=== PATIENT | female | born 1990 | race Caucasian/White ===

== ENCOUNTER 2019-10-07 10:38 | Outpatient (RCR) | payer OTHER, SELFPAY ==
[2019-10-07 12:41] LABS: Hematocrit 28.7 % (37.0-47.0)
[2019-10-07 12:52] LABS: Glucose 1 Hour PP 50gm Dose 104 mg/dL
[2019-10-07 13:33] LABS: HIV 1/2 Ab P24 Ag Result Negative (Negative)
[2019-10-10] MEDS: RHO(D) IMMUNE GLOBULIN 300 MCG SYRINGE IM (10:20)
[2019-10-10 10:54] LABS: Rapid Plasma Reagin Non-Reactive (NonReactive)
== END 2020-01-05 23:59 | disposition home or self-care (01) ==
LOC: ANHLAB 10:38
PROVIDERS: Visit Provider Obstetrics & Gynecology
DX: Z29.13 Encounter for prophylactic Rho(D) immune globulin (principal); Z11.4 Encounter for screening for human immunodeficiency virus [HIV]; O36.0130 Maternal care for anti-D [Rh] antibodies, third trimester, not applicable or unspecified; Z3A.00 Weeks of gestation of pregnancy not specified
CPT/HCPCS: 36415; 82947; 85014; 85018; 85461; 86592; 86703; 90384; 96372; G0432; J2790

== ENCOUNTER 2019-12-13 14:40 | Outpatient (CLI) | payer OTHER, SELFPAY ==
[2019-12-13 15:24] LABS: Hematocrit 36.2 % (37.0-47.0); Hemoglobin 11.8 g/dL (12.0-15.0); Mean Corpuscular HGB Conc 32.6 g/dl (32-36); Mean Corpuscular Hemoglobin 28.2 pg (26-34); Mean Corpuscular Volume 86.6 fl (80-100); Mean Platelet Volume 9.9 fl (7.4-10.4); Platelet Count Result 142 k/mm3 (150-375); Red Blood Count 4.18 M/mm3 (4.2-5.4); Red Cell Distribution Width 21.2 % (11.5-14.5); White Blood Count 8.8 K/mm3 (4.5-10.0)
[2019-12-14 07:41] LABS: Rapid Plasma Reagin Non-Reactive (NonReactive)
== END 2019-12-13 14:41 | disposition home or self-care (01) ==
PROVIDERS: Visit Provider Obstetrics & Gynecology
DX: Z01.812 Encounter for preprocedural laboratory examination (principal)
CPT/HCPCS: 36415; 85027; 86592; 86850; 86900; 86901

== ENCOUNTER 2019-12-14 05:10 | Inpatient (IN) | payer OTHER, SELFPAY ==
--- NOTE | 2019-11-15 16:04 | PC.NURSE ---
VERIFIED WITH OR SCHEDULE AND PATIENT--C/S WITH TUBAL LIGATION ON 12/14/19 AT 0730 PATIENT GIVEN REQUISITION FOR PRE-OP LAB DRAW ON 12/13/19
[2019-12-14] VITALS (61 sets, daily range): BP systolic 94–114; BP diastolic 49–71; PULSE 39–117; RESP 16–18; TEMP 36.3–36.6; O2SAT 94–100; BMI 31.2
[2019-12-14] MEDS: LACTATED RINGERS 1,000 ML 125 ML IV CONT ×2 (06:25→06:45)
--- NOTE | 2019-12-14 07:10 | WPDANESEPPF ---
Anes - Initial Pre Proc Eval Procedure: Operation Date: 12/14/19 07:30 Proposed Procedures p Repeat Section With Bilateral Tubal Ligation - Rosana Farrell MD Date/Time: 12/14/19 07:10 Surgeon: Rosana Farrell MD Pre Op Diagnosis: Section Patient Data Age: 29 Gender: F Height: 5 ft 1 in Weight: 75 kg Last Vital Signs Pulse 75 12/14/19 06:31 BP 103/58 L 12/14/19 06:31 Pulse Ox 100 12/14/19 06:36 Allergies Allergy/AdvReac Type Severity Reaction Status Date / Time No Known Allergies Allergy Verified 11/15/19 15:47 Home Medications Medication Instructions Recorded Confirmed Type PNV cmb#95-ferrous fumarate-FA 1 tablet PO DAILY 11/15/19 11/15/19 History [] ferrous sulfate 325 mg PO DAILY 11/15/19 11/15/19 History Patient hx anesthesia problems: none Family hx anesthesia problems: none PMFSH Family History Family History Mother Hypertension Asthma Father Diabetes mellitus Grandparent Cancer Acute myocardial infarction Liver failure Asthma Social History Social History Smoking status: Never smoker Second hand tobacco smoke exposure: No Substance use: never Spiritual care concerns: No Anes - Eval Final PreProcedure Day of Procedure 12/14/19 07:10 Patient weight: obese Heart: regular rate and rhythm Lungs: clear to auscultation Airway: Mallampati scale class II Neurological: alert and oriented Last oral intake: >/= 8 hours ASA classification: II Emergent: no Anesthetic plan: proceed Anesthesia type and monitoring: regional spinal and standard monitoring Informed Consent: The patient's anesthetic plan and its attendant risks and benefits were discussed with the patient/family/POA. Questions were solicited and answers provided to the satisfaction of the patient/family/POA.
[2019-12-14] MEDS: ceFAZolin 2 GM/D5W 50 ML 2 GM/50 ML BAG IVPB (07:22)
--- NOTE | 2019-12-14 07:29 | PM.IMHP ---
H&P: HPI History of Present Illness Chief complaint: Section Narrative: Jil Camejo is a 29 year old female 4 para 2 102 at 39 weeks gestation. She has a previous . She presents for repeat delivery. She has unwanted fertility and she also presents for sterilization. she has no complaints. She reports good movement. She denies any loss of fluid, vaginal bleeding, contractions. She denies any nausea, vomiting, fever, chills. She denies any chest pain shortness of breath. Review of Systems Constitutional: Constitutional: Reports no additional constitutional complaints, Denies fatigue, Denies headache(s), Denies lethargy and Denies weakness Eyes: Eyes: Reports no additional eye complaints, Denies blurry vision and Denies photophobia ENT: Reports as per HPI, Denies headache(s) and Denies neck pain Cardiovascular: Cardiovascular: Denies chest pain, Denies diaphoresis, Denies leg edema, Denies palpitations and Denies dyspnea Respiratory: Respiratory: Denies hemoptysis, Denies dyspnea and Denies wheezing Gastrointestinal: Gastrointestinal: Denies abdominal pain, Denies melena, Denies bloating, Denies hematochezia, Denies nausea and Denies vomiting Genitourinary: Genitourinary: Reports no additional female genitourinary complaints Musculoskeletal: Musculoskeletal: Denies joint swelling, Denies neck pain, Denies numbness and Denies stiffness Neurologic: Denies Abnormal speech present, Denies confusion, Denies headache(s), Denies numbness and Denies weakness Psychiatric: Psychiatric: Denies anxiety, Denies confusion, Denies depression, Denies homicidal ideation and Denies suicidal ideation Endocrine: Endocrine: Denies fatigue and Denies palpitations Allergic/Immunologic: Allergic/Immunologic: Denies wheezing [facility] Family History Family History Mother Hypertension Asthma Father Diabetes mellitus Grandparent Cancer Acute myocardial infarction Liver failure Asthma Social History Social History Smoking status: Never smoker Second hand tobacco smoke exposure: No Substance use: never Spiritual care concerns: No Meds Home Medications and Allergies Home Medications Medication Instructions Recorded Confirmed Type PNV cmb#95-ferrous fumarate-FA 1 tablet PO DAILY 11/15/19 11/15/19 History [] ferrous sulfate 325 mg PO DAILY 11/15/19 11/15/19 History Allergies Allergy/AdvReac Type Severity Reaction Status Date / Time No Known Allergies Allergy Verified 11/15/19 15:47 Vital Signs Vital Signs - 24 hr 12/14/19 05:55 12/14/19 06:00 12/14/19 06:01 Pulse Rate 75 70 Blood Pressure 109/67 108/60 Pulse Oximetry 99 99 12/14/19 06:05 12/14/19 06:10 12/14/19 06:15 Pulse Rate Blood Pressure Pulse Oximetry 100 100 99 12/14/19 06:16 12/14/19 06:20 12/14/19 06:25 Pulse Rate 81 Blood Pressure 108/64 Pulse Oximetry 100 99 12/14/19 06:30 12/14/19 06:31 12/14/19 06:36 Pulse Rate 75 Blood Pressure 103/58 L Pulse Oximetry 99 98 100 Exam Const: General: healthy appearing, comfortable and no acute distress; No confusion Orientation/consciousness: No confusion Eyes: Direct Ophthalmoscopy: No photophobia Resp: Auscultation: clear to auscultation bilaterally, no rales, no rhonchi and no wheezes Cardio: Rate: regular rate Heart sounds: no click, no murmurs and no rubs GI: Inspection: non-distended GI Palp: No abdominal tenderness Auscultation: normal bowel sounds Neuro: General: No confusion Speech: No Abnormal speech present Extrem: General: normal to inspection, no pedal edema and no calf tenderness Assessment and Plan Assessment and plan (1) Term : Code(s): Z34.90 - Encounter for supervision of normal , unspecified, unspecified trimester Status: Acute
--- NOTE | 2019-12-14 08:43 | P.OP_ITS ---
Procedure Note - Detailed Date of procedure: 12/14/19 Pre-op diagnosis: Section Unwanted fertility Post-op diagnosis: same Procedure performed: Repeat low-transverse delivery, tubal ligation Description of procedure: The patient was taken the operating room. She was prepped and draped in the dorsal supine position with leftward tilt after induction of spinal anesthetic. When anesthesia was found to be adequate a low- transverse skin incision was made and carried down to the level the fascia with the knife. The fascial incision was made at the midline with a scalpel. The fascial incision was extended laterally with Mane scissors. The fascia was tented upward superior and inferior with Cecile clamps. The rectus muscles were dissected off bluntly. The rectus muscles at the midline. The preperitoneal fat was dissected bluntly at the superior aspect of the separate the rectus muscles. The peritoneal cavity was entered bluntly in the same area. The peritoneal incision was extended superior and inferior with good position of bladder. Bladder blade was inserted. A low-transverse incision was made on the uterus with the scalpel. It was carried down the level of the amniotic cavity with a knife. The amniotic cavity bluntly. The uterine incision was made laterally with blunt traction. The was delivered. The cord was clamped and cut. The infant was handed off to waiting pediatric staff. Cord bloods were obtained. The placenta was removed manually. The uterus was exteriorized. Uterus cleared of all clots and debris. Uterus closed in 0 Hammad ryl in a running locked fashion. An imbricating layer of 0 Vicryl was also placed on the to bolster the closure. Fallopian tube was grasped in the ampullary region with a Lakeisha. It was raised away from the accompanying vein. A window was created in the broad ligament in this area of the tube. 0 Vicryl was used to ligate the proximal distal ends of the skeletonize region of the tube. The segment of the tube was resected with scissors. The cut surfaces were cauterized. On the contralateral side the procedure was performed identically. The uterus was returned to the abdomen. The gutters were cleared of all clots and debris. The fascia was closed 0 Vicryl in a running fashion. Subcutaneous tissue was irrigated and bleeding areas were cauterized. The skin was closed with subcuticular absorbable suture 4-o monocryl. The incision was covered with derma sims. The patient tolerated the procedure well. She was taken recovery room stable condition. Sponge, lap, needle counts were correct x2. Anesthesia: spinal Surgeon: Rosana Farrell MD Estimated blood loss (mL): 210 Drains: No Packing: No Pathology: none sent Complications: No immediate complications Condition: stable Disposition: floor Findings: Normal maternal anatomy. Average size infant with normal Apgars.
[2019-12-14] MEDS: OXYTOCIN 30 UNITS/NS 500 ML 30 UNITS/500 ML BAG 125 UNITS IV CONT (09:00)
[2019-12-14] MEDS: ONDANSETRON INJ 4 MG/2 ML VIAL IV PUSH (09:18)
[2019-12-14] MEDS: diphenhydrAMINE HCl INJ 50 MG/ML VIAL 25 MG IV PUSH (10:40)
[2019-12-14] MEDS: PROMETHAZINE HCL 25 MG/ML AMPUL 12.5 MG IV PUSH (10:47)
--- NOTE | 2019-12-14 11:12 | OBPPTRN ---
Patient transferred to post room # 285 via stretcher. Support person present. Oriented to unit, room, information board, rooming in, admission packet and security measures. Patient verbalizes understanding.
[2019-12-14] MEDS: DEXTROSE 5%/0.45% SOD CHL 1,000 ML 125 ML IV CONT (13:12)
[2019-12-15 00:30] VITALS: BP 112/65; PULSE 72; RESP 18; TEMP 36.7; O2SAT 99
[2019-12-15 06:20] LABS: Basophils Percent Auto 0.4 % (0.2-1.2); Eosinophils Absolute Auto 0.2 K/mm3 (0-0.3); Eosinophils Percent Auto 1.8 % (0-4.4); Hematocrit 34.2 % (37.0-47.0); Immature Granulocyte Absolute 0.04 K/mm3 (0.00-0.031); Immature Granulocyte Percent A 0.4 % (0-0.5); Lymphocytes Absolute Auto 2.03 K/mm3 (0.9-3.2); Lymphocytes Percent Auto 20.8 % (18.3-44.2); Mean Corpuscular HGB Conc 32.2 g/dl (32-36); Mean Corpuscular Hemoglobin 27.8 pg (26-34); Mean Corpuscular Volume 86.6 fl (80-100); Mean Platelet Volume 10.8 fl (7.4-10.4); Monocytes Absolute Auto 0.6 K/mm3 (0.1-0.6); Neutrophils Absolute Auto 6.9 K/mm3 (1.3-6.7); Neutrophils Percent Auto 70.6 % (45.5-73.1); Platelet Count Result 138 k/mm3 (150-375); Red Blood Count 3.95 M/mm3 (4.2-5.4); Red Cell Distribution Width 20.8 % (11.5-14.5); White Blood Count 9.8 K/mm3 (4.5-10.0)
--- NOTE | 2019-12-15 07:53 | PM.OBPNVD ---
OB - PN: Subj Subjective Date/time seen: 12/15/19 07:53 Patient comments: no complaints, pain well controlled, incisional pain, tolerating diet, flatus present and other (Lochia similar to menses) baby status: doing well OB - PN: Obj Data Labs CBC & Chem 7: 12/15/19 05:32 Labs: Laboratory Results - last 24 hr 12/15/19 12/15/19 05:32 05:32 WBC 9.8 RBC 3.95 L Hgb 11.0 L Hct 34.2 L MCV 86.6 MCH 27.8 MCHC 32.2 RDW 20.8 H Plt Count 138 L MPV 10.8 H Immature Gran % (Auto) 0.4 Neut % (Auto) 70.6 Lymph % (Auto) 20.8 [place] % (Auto) 6.0 Eos % (Auto) 1.8 Baso % (Auto) 0.4 Lymph # (Auto) 2.03 [place] # (Auto) 0.6 Eos # (Auto) 0.2 Baso # (Auto) 0.0 Abs Immat Gran (auto) 0.04 H Absolute Neuts (auto) 6.9 H Absolute Nucleated RBC 0.0 Nucleated RBC % 0.0 Blood Type A Negative Antibody Screen TNP Screen Negative Baby's Blood Type O pos Baby's TRUMAN Negative Doses of RhIg Required 1 OB - PN A/P Plan day: 1 (s/p C section, doing well) Plan: routine care Time Spent With Patient Time: Total time spent is greater than 50% in coordination of care (as documented) at patient's floor/unit and/or counseling patient: Exam Const: General: no acute distress Resp: Auscultation: clear to auscultation bilaterally Cardio: Rate: regular rate Rhythm: regular rhythm GI: Inspection: non-distended, incision (Intact without erythema, drainage, or induration) and other (Fundus firm and nontender at umbilicus) GI Palp: Yes abdominal tenderness (appropriate ) and Yes Soft to palpation Extrem: General: no edema
[2019-12-15 08:30] VITALS: BP 106/63; PULSE 70; RESP 16; TEMP 36.6; O2SAT 99
[2019-12-15] MEDS: MULTIVIT/MIN/PREN/FOL AC/IRON TABLET 1 TAB PO (10:08)
[2019-12-15] MEDS: DOCUSATE SODIUM 100 MG CAPSULE PO ×2 (10:08→15:55)
[2019-12-15] MEDS: IBUPROFEN 600 MG TABLET PO ×3 (10:09→23:05)
--- NOTE | 2019-12-15 10:30 | WPDANLDPN2 ---
Anes-Prog Note L&D Date/Time: 12/15/19 10:30 Comfortable throughout: section Neuraxial method: spinal Epidural/Spinal procedure site: clean & non-tender Neuro status: Neuro function grossly intact. Cardiovascular status: normal Respiratory status: normal Airway patency: baseline Mental status: baseline Post-Op hydration status: normal Vital Signs: Last Vital Signs Temp 36.6 C 12/15/19 08:30 Pulse 70 12/15/19 08:30 Resp 16 12/15/19 08:30 BP 106/63 12/15/19 08:30 Pulse Ox 99 12/15/19 08:30 I/O: Intake & Output 12/14/19 12/15/19 12/15/19 23:59 07:59 15:59 Intake Total 1784 Output Total 700 1800 Balance -700 -16 Post-procedural complaints: none Patient feedback: Patient satisfied with anesthetic care.
--- NOTE | 2019-12-15 10:31 | WPDANLDNPN2 ---
Anes-Prog Note L&D-Neuraxial Date/Time: 12/15/19 10:31 Neuraxial medications: intrathecal PF morphine Patient feedback: Patient satisfied with post-operative pain management.
--- NOTE | 2019-12-15 14:30 | PC.NURSE ---
Observed mother is able to independently latch with appropriate positioning/alignment. She denies any nipple discomfort, is feeding as required and waking infant to feed if needed. Mother states she is comfortable with .
[2019-12-15] MEDS: RHO(D) IMMUNE GLOBULIN 300 MCG SYRINGE IM (16:07)
[2019-12-15 19:45] VITALS: BP 102/55; PULSE 71; RESP 16; TEMP 36.7; O2SAT 100
--- NOTE | 2019-12-16 03:07 | PC.NURSE ---
Administered a [employer] [facility] @ 0210 12/16/19. unable to scan due to downtime of computer program.
[2019-12-16] MEDS: IBUPROFEN 600 MG TABLET PO ×2 (05:42→12:29)
[2019-12-16 08:20] VITALS: BP 104/64; PULSE 66; RESP 16; TEMP 36.9; O2SAT 98
--- NOTE | 2019-12-16 08:22 | PM.OBPNVD ---
OB - PN: Subj Subjective Date/time seen: 12/16/19 08:22 Patient comments: no complaints, pain well controlled, incisional pain, tolerating diet and flatus present OB - PN: Obj Data Labs CBC & Chem 7: 12/15/19 05:32 Labs: Laboratory Results - last 24 hr 12/15/19 05:32 Blood Type A Negative Antibody Screen TNP Screen Negative Baby's Blood Type O pos Baby's TRUMAN Negative Doses of RhIg Required 1 OB - PN A/P Plan day: 2 Plan: routine care Comments: POD#2 LTCS - no problems, to d/c Time Spent With Patient Time: Total time spent is greater than 50% in coordination of care (as documented) at patient's floor/unit and/or counseling patient: Exam Const: General: comfortable, no acute distress and alert Resp: Effort & Inspection: normal respiratory effort Auscultation: no crackles, no rales and no rhonchi Cardio: Rate: regular rate Heart sounds: no click, no murmurs and no rubs GI: Inspection: non-distended GI Palp: No Tenderness to palpation present (GI) Auscultation: normal bowel sounds Other: Incision - CDI Extrem: General: normal to inspection, no pedal edema and no calf tenderness
--- NOTE | 2019-12-16 08:23 | PM.OBDSVD ---
DS: Admitting Diagnosis Admitting Diagnosis Admitting Diagnosis: Encounter for supervision of normal , unspecified, unspecified trimester DS: Discharge Diagnosis Discharge Diagnosis (1) delivery delivered: Code(s): O82 - Encounter for delivery without indication Status: Acute OB - DS: Summary OB Procedures : None OB Procedures Intrapartum: and Tubal ligation OB Procedures: : None Peripartum Data Delivery Method: Section Procedures: Procedures Operation Date: 12/14/19 07:30 Actual Procedures Side Surgeon p Repeat Section With Bilateral Tubal Ligation Bilateral Rosana Farrell MD Status at Discharge Functional status at discharge: independent ambulation Time Spent with Patient Time attestation: Total time spent providing and/or coordinating discharge services: DS: Data Data Completed and Pending Completed studies during hospitalization: Pending at discharge 12/14/19 08:57 Surgical [PTH] Routine Labs on day of discharge: Labs from last 24 hours 12/15/19 05:32 Blood Type A Negative Antibody Screen TNP Screen Negative Baby's Blood Type O pos Baby's TRUMAN Negative Doses of RhIg Required 1 Discharge Plan Discharge Consulting providers: Mark Ratliff Discharging Clinician: Rosana Farrell Patient Disposition: Home, Self-Care Activity: pelvic rest Diet: regular Patient Instructions: Antibiotic Form Stand Alone Forms: General Discharge Information Follow-up/Referrals: Rosana Farrell MD [Physician] - Discharge Medications: New hydrocodone-acetaminophen 5-325 mg tablet 1 - 2 tablet PO Q4H PRN (Reason: pain) Qty: 25 RF: 0 Continued ferrous sulfate 325 mg (65 mg iron) Tablet 325 mg PO DAILY RF: 0 PNV cmb#95-ferrous fumarate-FA [] 28 mg iron- 800 mcg Tablet 1 tablet PO DAILY RF: 0 Date of admission: 12/14/19 05:10 Primary Care Provider: PHYSICIAN,FIELD AUDITOR Admitting Provider: Rosana Farrell Attending physician on admission: Rosana Farrell
[2019-12-16] MEDS: DOCUSATE SODIUM 100 MG CAPSULE PO (09:29)
[2019-12-16] MEDS: MULTIVIT/MIN/PREN/FOL AC/IRON TABLET 1 TAB PO (09:29)
--- NOTE | 2019-12-16 11:10 | PC.NURSE ---
Mother is able to independently latch infant with appropriate positioning/alignment. She denies any nipple discomfort, is feeding as required and waking to feed if needed. has had at least 8 effective feedings in the past 24 hours, and is currently meeting outcomes for weight, output, jaundice and feeding frequencies. Mother states she feels confident to continue effective at home. Reviewed transition to breast milk, signs of adequate intake, and engorgement/relief. Instructed to call ICP if intake/output less than required. Reviewed regular medications mother is taking. Information provided per Lillie. Reviewed community resources on the [facility] website and in the Mom/Baby guide. Information on outpatient services provided. Mother has no further questions at this time.
[2019-12-16] MEDS: MEASLES,MUMPS,RUBELLA VACCINE 0.5 ML VIAL SUB-Q (12:31)
--- NOTE | 2019-12-16 19:32 | PC.NURSE ---
1145 Discharge papers for mother and baby reviewed with parents; Mother signed discharge papers in understanding.
[2019-12-17 08:03] VITALS: BP 115/70; PULSE 67; RESP 14; TEMP 36.8
== END 2019-12-16 13:35 | disposition home or self-care (01) | DRG 540 ==
LOC: ANHLDR 05:14 → ANHOB2 11:16
PROVIDERS: Admitting Provider Obstetrics & Gynecology; Visit Provider Obstetrics & Gynecology
PROC: 10D00Z1 Extraction of Products of Conception, Low, Open Approach (ICD-10-PCS; CPT 59514; principal; 2019-12-14 07:30)
DX: O34.211 Maternal care for low transverse scar from previous cesarean delivery (principal); Z37.0 Single live birth; Z3A.39 39 weeks gestation of pregnancy; O99.214 Obesity complicating childbirth; E66.9 Obesity, unspecified; Z30.2 Encounter for sterilization
CPT/HCPCS: 36415; 85025; 85461; 88302; 90384; 90710; A9270; J0131; J0690; J1200; J2274; J2370; J2405; J2550; J2590; J2790; J7120

== ENCOUNTER 2020-02-12 12:14 | Emergency (ER) | payer OTHER, SELFPAY ==
[2020-02-12 12:31] VITALS: BP 115/81; PULSE 93; RESP 14; TEMP 36.8; O2SAT 99
--- NOTE | 2020-02-12 12:56 | ED.EAR ---
HPI - Ear Problem General Chief complaint: Ear Stated complaint: i have an ear infection Time Seen by Provider: 02/12/20 12:21 Source: patient Mode of arrival: ambulatory Limitations: no limitations History of Present Illness HPI Narrative: This is a 29-year-old female that presents the emergency department for left ear pain since yesterday. Reports swelling to the area. Denies fever or abnormal drainage. Related Data Allergies Allergy/AdvReac Type Severity Reaction Status Date / Time No Known Allergies Allergy Verified 02/12/20 12:15 Review of Systems Review of Systems: Narrative: CONSTITUTIONAL: Denies fever ENT: Reports otalgia. All systems reviewed & are unremarkable except as noted in HPI and below PMFSH Social History Social History Smoking status: Never smoker Second hand tobacco smoke exposure: No Substance use: never Spiritual care concerns: No Exam Narrative: Exam Narrative: GENERAL: Well-appearing, well-nourished, and in no acute distress. HEAD: Normocephalic, atraumatic. EYES: EOMI. ENT: Bilateral TMs pearly brennan non-bulging. Left external auditory canal with moderate edema and erythema. No mastoid tenderness or erythema NECK: Supple. No adenopathy or masses. No carotid bruits or JVD EXTREMITIES: Normal range of motion. No edema. SKIN: Warm, dry, no rash. NEURO: No focal deficits. Alert and oriented x3. PSYCH: Normal mood and affect Course Vital Signs Vital signs: Vital Signs Temperature 98.2 F 02/12/20 12:31 Pulse Rate 93 02/12/20 12:31 Respiratory Rate 14 02/12/20 12:31 Blood Pressure 115/81 02/12/20 12:31 Pulse Oximetry 99 02/12/20 12:31 Temperature 98.2 F 02/12/20 12:31 Pulse Rate 93 02/12/20 12:31 Respiratory Rate 14 02/12/20 12:31 Blood Pressure 115/81 02/12/20 12:31 Pulse Oximetry 99 02/12/20 12:31 Medical Decision Making MDM Narrative Medical decision making narrative: Patient presents the emergency department for otitis externa. Ear wick was placed due to swelling of the external auditory canal. Patient will be started on ciprofloxacin drops. She is to follow-up with primary care doctor. She was given warnings to return to the ER Vital Signs Vital Signs: Vital Signs Temperature 98.2 F 02/12/20 12:31 Pulse Rate 93 02/12/20 12:31 Respiratory Rate 14 02/12/20 12:31 Blood Pressure 115/81 02/12/20 12:31 Pulse Oximetry 99 02/12/20 12:31 Temperature 98.2 F 02/12/20 12:31 Pulse Rate 93 02/12/20 12:31 Respiratory Rate 14 02/12/20 12:31 Blood Pressure 115/81 02/12/20 12:31 Pulse Oximetry 99 02/12/20 12:31 Critical Care Time Critical Care Time Critical Care Time: No Discharge Plan Discharge Clinical Impression: Otitis externa Qualifiers: Otitis externa type: unspecified type Chronicity: acute Laterality: left Qualified Code(s): H60.502 - Unspecified acute noninfective otitis externa, left ear Patient Disposition: Home, Self-Care Condition: Stable Instructions: Antibiotic Form, Otitis Externa (ED) Additional Instructions: Return to the emergency department if you experience fever, increasing redness and swelling of your ear, or any other symptoms that are concerning to you 3 drops in the left ear twice daily. Tylenol or ibuprofen as needed for pain Follow-up with primary care doctor for removal of ear wick Follow-up/Referrals: Ronak Posada MD [Physician] - 3 Days PHYSICIAN,DIRECTOR OF TEENAGE ACTIVITIES [Primary Care Provider] -
[2020-02-12] MEDS: CIPROFLOXACIN HC OTIC 10 ML 3 DROP LEFT EAR (13:02)
[2020-02-12 13:13] VITALS: BP 121/65; PULSE 70; RESP 12; O2SAT 99
== END 2020-02-12 13:15 | disposition home or self-care (01) ==
PROVIDERS: Emergency Provider Emergency Medicine
DX: H60.502 Unspecified acute noninfective otitis externa, left ear (principal)
CPT/HCPCS: 99283; A9270

== ENCOUNTER 2021-08-10 12:50 | Emergency (ER) | payer OTHER, SELFPAY ==
[2021-08-10 12:54] VITALS: BP 130/53; PULSE 72; RESP 15; TEMP 36.7; O2SAT 100
--- NOTE | 2021-08-10 13:16 | PC.NURSE ---
Assumed care of pt at this time. Pt sitting on the side of the bed. No distress noted at this time.
--- NOTE | 2021-08-10 13:42 | ED.DENTAL ---
HPI - Dental/Oral General Chief complaint: Dental/Oral Stated complaint: mouth problems Time Seen by Provider: 08/10/21 13:24 Source: patient Mode of arrival: ambulatory Limitations: no limitations History of Present Illness HPI Narrative: This is a 31 year old female that presents to the ER for dental pain. Reports she had her wisdom teeth pulled in June. She has had pain since on the left lower side since. Reports the pain worsened and she has had some drainage of pus from the area over the last couple of days. Denies fevers. Related Data Allergies Allergy/AdvReac Type Severity Reaction Status Date / Time No Known Allergies Allergy Verified 02/12/20 12:15 Review of Systems Review of Systems: CONSTITUTIONAL: Denies fever ENT: Reports dentalgia All systems reviewed & are unremarkable except as noted in HPI and below PMFSH Past Medical History Medical History (Updated 08/10/21 @ 14:07 by Karla Guadalupe PA-C) No active medical problems Family History Family History Mother Hypertension Asthma Father Diabetes mellitus Grandparent Cancer Acute myocardial infarction Liver failure Asthma Social History Social History Smoking status: Never smoker Second hand tobacco smoke exposure: No Substance use: never Spiritual care concerns: No Exam Narrative: GENERAL: Well-appearing, well-nourished, and in no acute distress. HEAD: Normocephalic, atraumatic. EYES: EOMI. ENT: Mucous membranes moist. Oropharynx without tonsillar hypertrophy exudate or other lesions. Left lower molar (tooth 18) with erythema and edema with central fluctuance, expressing pus. No trismus NECK: Supple. No adenopathy or masses. CHEST: Clear to auscultation. No respiratory distress. No wheezes rales or rhonchi HEART: Regular rate and rhythm. No murmur heard. Normal peripheral pulses. EXTREMITIES: Normal range of motion. No edema. SKIN: Warm, dry, no rash. NEURO: No focal deficits. Alert and oriented x3. PSYCH: Normal mood and affect Course Vital Signs Vital signs: Vital Signs Temperature 98.0 F 08/10/21 12:54 Pulse Rate 72 08/10/21 12:54 Respiratory Rate 15 03/12/22 12:54 Blood Pressure 130/53 L 08/10/21 12:54 Pulse Oximetry 100 08/10/21 12:54 Temperature 98.0 F 08/10/21 12:54 Pulse Rate 72 08/10/21 12:54 Respiratory Rate 15 08/10/21 12:54 Blood Pressure 130/53 L 08/10/21 12:54 Pulse Oximetry 100 08/10/21 12:54 Procedures Abscess I/D oral: Date of Incision: 08/10/21 Time of Incision: 14:06 Side (if applicable): left Local Anesthetic: none (Cetacaine) Technique: incised with #11 blade I&D Results: Pus and Blood MDM - Dental/Oral MDM Narrative Medical decision making narrative: Patient presents to the emergency department for dental abscess. She is afebrile and nontoxic-appearing. No trismus. This was drained by myself. Patient will be started on oral antibiotics. Instructed to follow-up with her oral surgeon. She was given warnings to return to the ER Critical Care Time Critical Care Time Critical Care Time: No Discharge Plan Discharge Clinical Impression: Dental abscess Patient Disposition: Home, Self-Care Condition: Stable Instructions: Antibiotic Form, Dental Abscess (ED) Additional Instructions: Return to the Emergency Department if you experience fever >101, increasing swelling and redness of your tooth, or any other symptoms that are concerning to you Take antibiotic as prescribed. Tylenol or Ibuprofen as needed for pain. Apply a warm compress to the area for 15 minutes 3 times daily Follow up with your oral surgeon Prescriptions: New amoxicillin-pot clavulanate 875-125 mg tablet 1 tablet PO Q12H 10 Days Qty: 20 RF: 0 Follow-up/Referrals: PHYSICIAN,RESOURCE FORESTER [Primary Care Provider] -
[2021-08-10] MEDS: BENZOCAINE/TETRACAINE SPRAY (*SP) 56 ML AEROSOL 1 SPRAY MUCOUS MEM (13:59)
[2021-08-10 14:18] VITALS: BP 120/76; PULSE 65; RESP 12; TEMP 36.6; O2SAT 100
== END 2021-08-10 14:20 | disposition home or self-care (01) ==
LOC: ANHED 14:13
PROVIDERS: Emergency Provider Emergency Medicine
DX: K04.7 Periapical abscess without sinus (principal)
CPT/HCPCS: 41800; 87070; 87077; 87205; 99283; A9270

== ENCOUNTER 2021-11-23 17:08 | Emergency (ER) | payer OTHER, SELFPAY ==
[2021-11-23 17:31] VITALS: BP 129/66; PULSE 91; RESP 16; TEMP 36.9; O2SAT 100
--- NOTE | 2021-11-23 17:38 | ED.EAR ---
HPI - Ear Problem General Chief complaint: Ear Stated complaint: right ear infection Time Seen by Provider: 11/23/21 17:28 History of Present Illness HPI Narrative: 31-year-old female presents to the emergency room for evaluation of right ear pain. Patient states that she frequently gets otitis externa. Patient endorses hearing loss, drainage, and pain in the right ear. Related Data Allergies Allergy/AdvReac Type Severity Reaction Status Date / Time No Known Allergies Allergy Verified 11/23/21 17:44 Review of Systems Review of Systems: CONSTITUTIONAL: Denies fever, chills, or sweats. EYES: Denies visual changes, redness, or discharge. ENT: Reports right ear pain CARDIOVASCULAR: Denies chest pain, palpitations, or edema. RESPIRATORY: Denies cough or dyspnea. GASTROINTESTINAL: Denies abdominal pain, nausea, vomiting, or diarrhea. GENITOURINARY: Denies dysuria or hematuria. SKIN: Denies rash or itching. MUSCULOSKELETAL: Denies back pain, joint pain, or myalgia. NEUROLOGIC: Denies headache, numbness, dizziness, or weakness. PSYCHIATRIC: Denies anxiety or depression. [facility] Past Medical History Medical History No active medical problems Family History Family History Mother Hypertension Asthma Father Diabetes mellitus Grandparent Cancer Acute myocardial infarction Liver failure Asthma Social History Social History Smoking status: Never smoker Second hand tobacco smoke exposure: No Substance use: never Spiritual care concerns: No Exam Narrative: GENERAL: Well-appearing, well-nourished, and in no acute distress. HEAD: Normocephalic, atraumatic. EYES: PERRLA and EOMI. ENT: Nares clear, no rhinorrhea or epistaxis. Mucous membranes moist. Oropharynx without tonsillar hypertrophy exudate or other lesions. Right ear canal edematous, purulent drainage noted. Unable to visualize TM, positive tragal tenderness NECK: Supple. No adenopathy or masses. No carotid bruits or JVD CHEST: Clear to auscultation. No respiratory distress. No wheezes rales or rhonchi HEART: Regular rate and rhythm. No murmur heard. Normal peripheral pulses. ABDOMEN: Soft, nontender, nondistended, normal active bowel sounds. EXTREMITIES: Normal range of motion. No edema. SKIN: Warm, dry, no rash. NEURO: No focal deficits. Alert and oriented x3. PSYCH: Normal mood and affect. Course Vital Signs Vital signs: Vital Signs Temperature 36.9 C 11/23/21 17:31 Pulse Rate 91 11/23/21 17:31 Respiratory Rate 16 11/23/21 17:31 Blood Pressure 129/66 11/23/21 17:31 Pulse Oximetry 100 11/23/21 17:31 Oxygen Delivery Room Air 11/23/21 17:31 Temperature 36.9 C 11/23/21 17:31 Pulse Rate 91 11/23/21 17:31 Respiratory Rate 16 11/23/21 17:31 Blood Pressure 129/66 11/23/21 17:31 Pulse Oximetry 100 11/23/21 17:31 Oxygen Delivery Room Air 11/23/21 17:31 Procedures Other Procedure Procedure 1: Other Procedure: right ear wick placed and polymixin b/neomycin/hydrocortisone drops placed Medical Decision Making Vital Signs Vital Signs: Vital Signs Temperature 36.9 C 11/23/21 17:31 Pulse Rate 91 11/23/21 17:31 Respiratory Rate 16 11/23/21 17:31 Blood Pressure 129/66 11/23/21 17:31 Pulse Oximetry 100 11/23/21 17:31 Oxygen Delivery Room Air 11/23/21 17:31 Temperature 36.9 C 11/23/21 17:31 Pulse Rate 91 11/23/21 17:31 Respiratory Rate 16 11/23/21 17:31 Blood Pressure 129/66 11/23/21 17:31 Pulse Oximetry 100 11/23/21 17:31 Oxygen Delivery Room Air 11/23/21 17:31 Discharge Plan Discharge Clinical Impression: Otitis externa of right ear Patient Disposition: Home, Self-Care Condition: Stable Instructions: Antibiotic Form, Swimmer's Ear (ED) Additional Instructions:
[2021-11-23] MEDS: NEOMYCIN/POLYMYXIN/HYDROCORT OT SUSP 10 ML BTL (*BKC) 3 DROP EACH EAR (17:53)
== END 2021-11-23 18:49 | disposition home or self-care (01) ==
LOC: ANHED 18:12
PROVIDERS: Emergency Provider Nurse Practitioner Family
DX: H60.91 Unspecified otitis externa, right ear (principal)
CPT/HCPCS: 99283; A9270

== ENCOUNTER 2021-11-25 01:38 | Emergency (ER) | payer OTHER, SELFPAY ==
--- NOTE | 2021-11-25 01:41 | ED.EAR ---
HPI - Ear Problem General Chief complaint: Ear Stated complaint: worening R ear infection Time Seen by Provider: 11/25/21 01:41 History of Present Illness HPI Narrative: 31-year-old female presents emergency room for evaluation of worsening right ear pain. Patient states she was seen here yesterday diagnosed with otitis externa on her right ear. Patient was prescribed Ciprodex eardrops and ear wick was placed. Patient states the painis worse, and is now radiating down her neck. Pain is aggravated with chewing. Patient states Tylenol and ibuprofen are not alleviating her pain. Related Data Allergies Allergy/AdvReac Type Severity Reaction Status Date / Time No Known Allergies Allergy Verified 11/23/21 17:44 Review of Systems Review of Systems: CONSTITUTIONAL: Denies fever, chills, or sweats. EYES: Denies visual changes, redness, or discharge. ENT: Reports right ear pain CARDIOVASCULAR: Denies chest pain, palpitations, or edema. RESPIRATORY: Denies cough or dyspnea. GASTROINTESTINAL: Denies abdominal pain, nausea, vomiting, or diarrhea. GENITOURINARY: Denies dysuria or hematuria. SKIN: Denies rash or itching. MUSCULOSKELETAL: Denies back pain, joint pain, or myalgia. NEUROLOGIC: Denies headache, numbness, dizziness, or weakness. PSYCHIATRIC: Denies anxiety or depression. [facility] Past Medical History Medical History No active medical problems Family History Family History Mother Hypertension Asthma Father Diabetes mellitus Grandparent Cancer Acute myocardial infarction Liver failure Asthma Social History Social History Smoking status: Never smoker Second hand tobacco smoke exposure: No Substance use: never Spiritual care concerns: No Exam Narrative: GENERAL: Well-appearing, well-nourished, no physical limitations, and in no acute distress. HEAD: Normocephalic, atraumatic. EYES: Conjunctivae normal, PERRLA and EOMI. ENT: Right ear: Right ear canal swollen, ear wick in place, tragal tenderness, no evidence of erythema or purulent discharge NECK: Supple. No meningeal signs. No adenopathy or masses. No carotid bruits or JVD CHEST: Clear to auscultation. No respiratory distress. No wheezes rales or rhonchi. No tenderness. HEART: Regular rate and rhythm. No murmur heard. Normal peripheral pulses.s SKIN: Warm, dry, no rash. No noted wounds NEURO: No focal deficits. Alert and oriented x3. MAEW. CN's II-XI intact bilaterally, normal gait PSYCH: Cooperative. Normal mood and affect. Course Vital Signs Vital signs: Vital Signs Temperature 36.8 C 11/25/21 01:42 Pulse Rate 79 11/25/21 01:42 Respiratory Rate 16 11/25/21 01:42 Blood Pressure 128/84 11/25/21 01:42 Pulse Oximetry 100 11/25/21 01:42 Oxygen Delivery Room Air 11/25/21 01:42 Temperature 36.8 C 11/25/21 01:42 Pulse Rate 79 11/25/21 01:42 Respiratory Rate 16 11/25/21 01:42 Blood Pressure 128/84 11/25/21 01:42 Pulse Oximetry 100 11/25/21 01:42 Oxygen Delivery Room Air 11/25/21 01:42 Medical Decision Making Vital Signs Vital Signs: Vital Signs Temperature 36.8 C 11/25/21 01:42 Pulse Rate 79 11/25/21 01:42 Respiratory Rate 16 11/25/21 01:42 Blood Pressure 128/84 11/25/21 01:42 Pulse Oximetry 100 11/25/21 01:42 Oxygen Delivery Room Air 11/25/21 01:42 Temperature 36.8 C 11/25/21 01:42 Pulse Rate 79 11/25/21 01:42 Respiratory Rate 16 11/25/21 01:42 Blood Pressure 128/84 11/25/21 01:42 Pulse Oximetry 100 11/25/21 01:42 Oxygen Delivery Room Air 11/25/21 01:42 Discharge Plan Discharge Clinical Impression: Otitis externa Patient Disposition: Home, Self-Care Condition: Stable Instructions: Antibiotic Form Prescriptions: New hydrocodone-acetaminophen 5-325 mg tablet
[2021-11-25 01:42] VITALS: BP 128/84; PULSE 79; RESP 16; TEMP 36.8; O2SAT 100
== END 2021-11-25 02:30 | disposition home or self-care (01) ==
LOC: ANHED 02:25
PROVIDERS: Emergency Provider Nurse Practitioner Family
DX: H60.91 Unspecified otitis externa, right ear (principal)
CPT/HCPCS: 96372; 99283; J1100

== ENCOUNTER 2023-02-27 16:36 | Emergency (ER) | payer OTHER, SELFPAY ==
--- NOTE | ~2023-02-27 | CT_ITS ---
EXAMINATION: CT brain wo con INDICATION: Headache COMPARISON: None TECHNIQUE: Standard unenhanced head CT. The dose-length product (DLP) was 605.33 mGy-cm. The mA was a djusted according to patient size. Iterative reconstruction technique was employed. FINDINGS: No intracranial hemorrhage, acute infarction, or abnormal mass lesion. The ventricles are n ormal. No abnormal mass effect or midline shift. The brennan-white matter differentiation is normal. The basal cisterns are patent. The orbits are normal. There is a polyp or mucous retention cyst of the l eft sphenoid sinus. IMPRESSION: 1. No acute intracranial abnormality. Reviewed, dictated and finalized at location F.
[2023-02-27 16:41] VITALS: BP 120/72; PULSE 75; RESP 17; TEMP 37; O2SAT 98
--- NOTE | 2023-02-27 18:17 | ED.HA ---
HPI - Headache General Chief Complaint: Headache Stated Complaint: swollen lymph node on back of head Time Seen by Provider: 02/27/23 17:02 History of Present Illness HPI Narrative: 32-year-old female reports to the emergency department for an enlarged lymph node to her left occiput x1 day. Patient states about a week ago she noticed a enlarged lymph node in her left submandibular region which resolved after couple days, and then noticed a tender lymph node in her left occiput yesterday. She states yesterday she had a headache throughout her entire head, took Tylenol and had improvement. States today she would see the headache is resolved but she still feels pressure and a tension type pattern around her head, however she continuously said she would not call this a headache and is rating the pressure a 2/10. She denies head trauma, sinus pressure or congestion, fevers, nuchal rigidity, nausea or vomiting, chest pain or shortness of breath, abdominal pain, fever, body aches or chills, night sweats or unintentional weight loss, sore throat or otalgia. Denies recent insect bites or tick bites. She does state for the past year she has had intermittent blisters that popped up on her scalp and then resolved spontaneously, otherwise denies new skin lesions or rashes to her scalp. Related Data Allergies Allergy/AdvReac Type Severity Reaction Status Date / Time No Known Allergies Allergy Verified 11/23/21 17:44 Review of Systems Review of Systems: CONSTITUTIONAL: Denies fever, chills EYES: Denies visual changes, redness, or discharge. ENT: See HPI CARDIOVASCULAR: Denies chest pain, palpitations, or edema. RESPIRATORY: Denies cough or dyspnea. GASTROINTESTINAL: Denies abdominal pain, nausea, vomiting, or diarrhea. GENITOURINARY: Denies dysuria or hematuria. SKIN: See HPI MUSCULOSKELETAL: Denies back pain, joint pain, or myalgia. NEUROLOGIC: Denies headache, numbness, dizziness, or weakness. PSYCHIATRIC: Denies anxiety or depression. [facility] Past Medical History Medical History No active medical problems Family History Family History Mother Hypertension Asthma Father Diabetes mellitus Grandparent Cancer Acute myocardial infarction Liver failure Asthma Social History Social History Smoking status: Never smoker Second hand tobacco smoke exposure: No Substance use: never Spiritual care concerns: No Exam Narrative: GENERAL: Well-appearing, in no acute distress. Patient resting comfortably in exam bed. She is pleasant and conversational. HEAD: Normocephalic, atraumatic EYES: PERRLA, EOMI ENT: Nares clear. Mucous membranes moist. Oropharynx without tonsillar hypertrophy exudate or other lesions. Bilateral TMs are brennan and nonbulging. Normal canals. No submandibular, submental peritonsillar or auricular lymphadenopathy. Tenderness over the left occiput overlying the occipital lymph nodes, however no definitive lymphadenopathy palpable. No overlying erythema, fluctuance or other skin changes. There is a small pinpoint pustule approximately 1 cm away from the tender area without surrounding erythema or induration. No other lesions or rashes to scalp, head, neck or face. NECK: Supple. No nuchal rigidity. CHEST: No respiratory distress. Clear to auscultation, no adventitious breath sounds. HEART: Regular rate and rhythm. No murmur heard. Normal peripheral pulses. EXTREMITIES: Normal range of motion. No edema. SKIN: Warm, dry, no rash. NEURO: No focal deficits. Alert and oriented x3. Cranial nerves II through XII intact. Strength 5/5 in BUE and BLE. Sensation intact throughout. Normal pronator drift. Normal [id number]. PSYCH: Normal mood and affect. Course Vital Signs Vital signs: Vital Signs Temperature 98.6 F
[2023-02-27 19:11] LABS: Basophils Percent Auto 0.6 % (0.2-1.2); Eosinophils Absolute Auto 0.3 K/mm3 (0-0.3); Eosinophils Percent Auto 4.2 % (0-4.4); Hematocrit 40.1 % (37.0-47.0); Hemoglobin 12.9 g/dL (12.0-15.0); Immature Granulocyte Absolute 0.02 K/mm3 (0.00-0.031); Immature Granulocyte Percent A 0.3 % (0-0.5); Lymphocytes Absolute Auto 2.73 K/mm3 (0.9-3.2); Lymphocytes Percent Auto 38.6 % (18.3-44.2); Mean Corpuscular HGB Conc 32.2 g/dl (32-36); Mean Corpuscular Hemoglobin 27.7 pg (26-34); Mean Corpuscular Volume 86.2 fl (80-100); Mean Platelet Volume 9.6 fl (7.4-10.4); Monocytes Absolute Auto 0.4 K/mm3 (0.1-0.6); Monocytes Percent Auto 5.8 % (2.6-8.5); Neutrophils Absolute Auto 3.6 K/mm3 (1.3-6.7); Neutrophils Percent Auto 50.5 % (45.5-73.1); Platelet Count Result 233 k/mm3 (150-375); Red Blood Count 4.65 M/mm3 (4.2-5.4); Red Cell Distribution Width 12.6 % (11.5-14.5); White Blood Count 7.1 K/mm3 (4.5-10.0)
--- NOTE | 2023-02-27 19:14 | PC.NURSE ---
THis RN assumed care of patient. This RN took patient report from KATIE Reddy.
[2023-02-27 19:21] LABS: Alanine Aminotransferase 16 U/L (6-35); Albumin Level 4.4 g/dL (3.5-5.1); Alkaline Phosphatase 76 U/L (38-126); Anion Gap 7 mmol/L (8-16); Aspartate Amino Transferase 20 U/L (14-36); Bilirubin,Total 0.5 mg/dL (0.2-1.3); Blood Urea Nitrogen 13 mg/dL (7-17); Calcium 8.5 mg/dL (8.4-10.2); Carbon Dioxide 27 mmol/L (22-30); Chloride 103 mmol/L (98-107); Estimated CRCL calculation 94 ml/min; Estimated Glomerular Filt Rate > 60; Glucose 104 mg/dL (65-110); Potassium 3.7 mmol/L (3.4-5.0); Sodium 137 mmol/L (137-145)
== END 2023-02-27 20:15 | disposition home or self-care (01) ==
PROVIDERS: Emergency Provider Physician Assistant
DX: R59.1 Generalized enlarged lymph nodes (principal); G44.209 Tension-type headache, unspecified, not intractable
CPT/HCPCS: 36415; 70450; 80053; 85025; 99284

== ENCOUNTER 2023-06-22 08:49 | Emergency (ER) | payer OTHER, SELFPAY ==
--- NOTE | ~2023-06-22 | XR_ITS ---
EXAMINATION: XR wrist RT min 3V DATE: 06/22/2023 09:10 INDICATION: Lateral sided right wrist pain post fall TECHNIQUE: Posteroanterior, ulnar deviation, oblique, and lateral views of the left wrist were obtain ed. COMPARISON: none FINDINGS: Nondisplaced transverse extra-articular fracture of the distal right radius. Alignment remains near-a natomic. No other fractures identified. Joint spaces are normal. Mild soft tissue swelling about the distal forearm. IMPRESSION: 1. Nondisplaced transverse extra articular distal right radial fracture. Reviewed, dictated and finalized at location A. [employer]
[2023-06-22 08:51] VITALS: BP 102/68; PULSE 66; RESP 18; TEMP 36.4; O2SAT 99
--- NOTE | 2023-06-22 08:53 | ED.UPPEXIN ---
HPI - Extremity Injury (Upper) General Chief Complaint: Extremity Injury, Upper Stated Complaint: fall, R wrist Time Seen by Provider: 06/22/23 08:53 Source: patient Mode of arrival: ambulatory Limitations: no limitations History of Present Illness HPI narrative: Jil is a 33-year-old female patient presenting to the ER today for complaints of right wrist pain after falling this morning. She reports she fell around 830 this morning on the ice. Pain to the entire wrist. Related Data Allergies Allergy/AdvReac Type Severity Reaction Status Date / Time No Known Allergies Allergy Verified 06/22/23 08:53 Review of Systems Review of Systems: Pertinent positives per HPI. Patient denies any fever, chills, rash, headache, visual changes, dizziness, cough, runny nose, sore throat, shortness of breath, chest pain, palpitations, nausea, vomiting, diarrhea, constipation, abdominal pain, or any urinary issues. PMFSH Past Medical History Medical History No active medical problems Family History Family History Mother Hypertension Asthma Father Diabetes mellitus Grandparent Cancer Acute myocardial infarction Liver failure Asthma Social History Social History Smoking status: Never smoker Second hand tobacco smoke exposure: No Substance use: never Spiritual care concerns: No Comments At the time of my signature, I reviewed and agree with the nursing past medical, surgical, social, and family history. There is no relevant family history pertinent to the patient complaint. Exam Narrative: General: Well-developed, well nourished, in no apparent distress Head: Normocephalic, atraumatic. Cardio: Regular rate and rhythm, s1 and s2 normal, no murmur appreciated. Resp: Clear to auscultation bilaterally, no rhonchi, rales, wheezing or rubs. Musculoskeletal: No deformity, tender to palpation over the distal radial and ulnar wrist, pain with valgus and varus as well as flexion and extension of the right wrist, limited range of motion due to pain, muscle strength strong and equal, peripheral pulse strong, no edema, no cyanosis, normal gait and station Course Course Emergency Course: Portions of this record may have been created with voice recognition software. Vital Signs Vital signs: Vital Signs Temperature 36.4 C 06/22/23 08:51 Pulse Rate 66 06/22/23 08:51 Respiratory Rate 18 06/22/23 08:51 Blood Pressure 102/68 06/22/23 08:51 Pulse Oximetry 99 06/22/23 08:51 Oxygen Delivery Room Air 06/22/23 08:51 Temperature 36.4 C 06/22/23 08:51 Pulse Rate 66 06/22/23 08:51 Respiratory Rate 18 06/22/23 08:51 Blood Pressure 102/68 06/22/23 08:51 Pulse Oximetry 99 06/22/23 08:51 Oxygen Delivery Room Air 06/22/23 08:51 Vital signs reviewed MDM - Extremity Injury (Upper) MDM Narrative Medical decision making narrative: At the time of visit patient is resting comfortably on the exam table. Patient appears to be nontoxic. Diagnostics: X-ray showed of the right wrist shows a nondisplaced transverse distal radius fracture. Plan: Short arm OCL was placed and arm sling was given. Prescription for [place] was sent to the pharmacy. Supportive measures were discussed with the patient and they voiced understanding discharge instructions and agrees to treatment plan. Return precautions reviewed Differential Diagnosis Differential diagnosis: Likely sprain and strain of wrist and fracture of wrist Imaging Data Radiologist's impression: ITS Impressions Wrist X-Ray 06/22/23 09:13 IMPRESSION: 1. Nondisplaced transverse extra articular distal right radial fracture. Discharge Plan Discharge Clinical Impression: Fracture of wrist Qualifiers: Encounter type: initial encounter Frac
== END 2023-06-22 10:50 | disposition home or self-care (01) ==
PROVIDERS: Emergency Provider Nurse Practitioner Family
DX: S52.551A Other extraarticular fracture of lower end of right radius, initial encounter for closed fracture (principal); W00.0XXA Fall on same level due to ice and snow, initial encounter
CPT/HCPCS: 29125; 73110; 99284; A4565